=== PATIENT | female | born 1940 ===

== ENCOUNTER → 2018-10-30 | Outpatient (CLI) | payer OTHER ==
[~2018-10-30] VITALS: Ht 157.5 cm; Wt 69.4 kg
[~2018-10-30] MED LIST: ASPIR 8181 MG PO; FLEXERIL PO; GABAPENTIN 100100 MG PO; HYDROCODON-ACE1 EAC7 PO; LEXAPRO 10 MG T10 M1 PO; NEURONTIN 300300 M1 PO; OMEPRAZOLE20 M2 PO; SKELAXIN 800 M800 M1 PO; UNICOMPLEX M TA1 TA1 PO; VITAMIN C250 MG PO; VITAMIN D3400 UNIT PO
[2018-10-30 09:51] VITALS: BP 169/72
--- NOTE | 2018-10-30 10:08 | NUR ---
Pain Clinic Assessment: 1. History of Osteoarthritis: History of Rheumatoid Arthritis: 2. Height: 5 ft. 2 in. 157.5 cm. Weight: 153.0 lb. oz. 69.400 kg. Patient's BMI: 28.0 3. Vital Signs: BP: 169/72 Pulse: 86 Resp: 16 Temp: 02 Sat: 100 ECG Mon: 4. Pain Intensity: 10 5. Fall Risk: Dizziness: N Needs help standing or walking: N Fallen in the last 3 months: N Fall risk comments: 6. Patient on Blood Thinner: None 7. History of Hypertension: 8. Opioid Therapy greater than 6 weeks: N Opiate Contract Signed: 9. Risk Assessment Tool Provided: 10. Functional Assessment Tool: 11. Recreational Drug Use: Never Drug Type: Tobacco Use: Never Smoker Tobacco Type: Amount or Packs/day: How Many Years: Alcohol Use: No Frequency: Quant:
--- NOTE | 2018-11-05 11:18 | HPC ---
[facility] [place] [address] PAIN MANAGEMENT CONSULTATION Name: FABIOLA VIGIL [facility] #: [facility] [id number] Admission: 10/30/18 Attend Phys: Keith Glasgow MD Discharge: Date of : 36 Report #: [id number] THIS REPORT FOR: //name// CC: Dr. Phil Glasgow DATE OF SERVICE: 10/30/2018 CHIEF COMPLAINT: Right-sided occipital pain and neck stiffness. The patient is a very sharp and pleasant 77-year-old female who is at my clinic today at the request of Dr. Juanito Wilcox. She has had a 6-month history of cervicalgia with radiation up into the right lesser and greater occipital nerve distribution. The pain came on fairly abruptly. She was told early on by a chiropractor that she should see an ENT to make sure there was not some inner ear issue. She saw ENT in [place] or [facility] who told her that there was neuropathy and there was nothing to do other than to try some medication. She saw Dr. Naidu who did provide her with a local injection, which did not provide lasting relief and gave her gabapentin for neuropathy 300 mg at bedtime and ultimately 100 mg 3 times daily. Neither those seemed to provide enough relief to give her any benefit. She had no significant side effects on the gabapentin. Her daughter who works for [employer] suggested Tylenol and then ibuprofen, neither providing relief and ibuprofen causing GI upset and nausea and vomiting. Ultimately, she had a CT scan and saw Dr. Juanito Wilcox. Unfortunately, the CT scan did not come with her to clinic today, but the verbal report from patient and daughter is that there are degenerative changes and osteoarthritis as would be expected for a 77 year old. I am ordering the CT scan, but anticipate to see cervical spondylitic changes. MEDICATIONS: Vitamin C, vitamin D3, omeprazole, vitamins, gabapentin, Lexapro 10 mg daily and 81 mg aspirin. ALLERGIES: PENICILLIN, SULFA, CODEINE and CRESTOR. PAST MEDICAL HISTORY: Significant for an ovarian surgery decades ago, but otherwise she says she has had no other surgery and has been in excellent health. She does have a mild history of gastroesophageal reflux disease. REVIEW OF SYSTEMS: Positive for mild depression intermittently which has been treated with Lexapro. Mild anxiety disorder and now her current headaches. She has nocturia and incontinence and dribbling. She suffered at times from gastroesophageal reflux disease. [facility] [address] [place] [address] PAIN MANAGEMENT CONSULTATION Name: FABIOLA VIGIL [facility] [id number] Admission: 10/30/18 Attend Phys: Keith Glasgow MD Discharge: Date of : 36 Report #: [id number] SOCIAL HISTORY: Her son was killed 16 years ago in a murder which she continues to remember on his anniversary which was yesterday. She also attends a support group twice a month she says to help others who have gone through similar tragedy. Her 6 years ago. She remains very active. She drives her car. She volunteers at the hospital. She volunteers at [employer]. She can completely take care of herself. Her daughter is supportive and present with her today. PHYSICAL EXAMINATION: A very short pleasant 77 year old. Her blood pressure is 169/72, heart rate 86, respirations 16. She is 5 feet 2 inches, 153 pounds, BMI of 28. She reports her pain intensity is 10/10 today. This is her usual daily severe pain. She is not a fall risk when she stands and walks. She has a history of hypertension on medication. She is on no opioid medication. She does not use tobacco and does not drink regularly, although she had a glass of wine and found it to be analgesic recently. She has no history of rheumatoid osteoarthritis, but reports an osteoarthritic history in her neck. Her chest is clear. Her cardiac rhythm is regular. She moves easily from sitting to standing position and ambulates without difficulty. Examination of the cervical spine reveals decreased range of motion in all planes, flexion, extension, wevp-me-plxw rotation and lateral tilt. Pain is all in the right side, although she has tightness. She can only perform these range of motions to about 30% of normal, perhaps a little bit less. She has tightness in the cervicalis splenius capitis. She has tenderness below the right occiput. Strength and sensation is normal in the upper extremities. Deep tendon reflexes are diminished bilaterally. IMPRESSION: Cervicalgia with radiation to the C2-C3 distribution into the back of the head. She has failed so far medication management and local injection with greater occipital nerve block. RECOMMENDATION: 1. I want to review the CT scan. 2. I believe that she would benefit from a C2-C3 nerve root block performed at C2-C3 facet from the lateral approach. This has been helpful for many patients with similar presentation. 3. Begin hydrocodone 5 mg one-half to one tablet q.6 hours p.r.n. and she was given 30 tablets with discussion on safeguarding medications and review of the opioid crisis. We will not start her on chronic medication, so this is not a patient I would initiate contract with unless we determine that is a longstanding treatment option. We will seek preauthorization from the insurance company for the C2-C3 nerve [facility] [address] [place] [address] PAIN MANAGEMENT CONSULTATION Name: FABIOLA VIGIL Room #: REG NESSA Ramirez#: [id number] Admission: 10/30/18 Attend Phys: Keith Glasgow MD Discharge: Date of : 36 Report #: [id number] blocks under fluoroscopic guidance and we will see her back in the pain clinic in 1 week. <ELECTRONICALLY SIGNED> By: Keith Glasgow MD 11/05/18 1118 [id number] Keith Glasgow MD /nt
== END ==
LOC: PAIN 07:36
DX: R51 Headache (principal); M54.2 Cervicalgia; H92.01 Otalgia, right ear

== ENCOUNTER → 2018-11-13 | Outpatient (CLI) | payer OTHER ==
[~2018-11-13] VITALS: Ht 157.5 cm; Wt 69.3 kg
--- NOTE | ~2018-11-13 | HPC ---
[facility] [place] [address] PAIN MANAGEMENT CONSULTATION Name: FABIOLA VIGIL Room #: [facility] [id number] Admission: 11/13/18 Attend Phys: Keith Glasgow MD Discharge: Date of : 36 Report #: [id number] THIS REPORT FOR: //name// CC: Juanito Glasgow DATE OF SERVICE: 11/13/2018 Followup visit for chief complaint of right occipital pain and neck stiffness. The patient was seen just 2 weeks ago with evaluation leading to diagnosis of C3 neuralgia, evidence of C2-C3 and C3-C4 facet arthropathy. She is here today for C2-C3 nerve block under fluoroscopic guidance. The procedure was explained in detail, including risks and benefits. I reviewed my report of just [address] days [address] and x-ray reports. PHYSICAL EXAMINATION: VITAL SIGNS: Today, she is 5 feet 2 inches, 158, BMI 27.9. Blood pressure 170/82, heart rate 72 and respirations 20. Pain intensity is 10. MUSCULOSKELETAL: Localized discomfort is located laterally on the right, overlying the C2-C3 facet. This is confirmed with exam under x-ray in the fluoroscopic suite. She has significant discomfort with rotational movements of the head and lateral tilt. Flexion and extension is performed with only about 25% reduction from normal. All reflexes are slightly diminished symmetrically. Strength and sensation in the upper extremities are normal. IMPRESSION: Cervicalgia with C2-C3 radicular radiation distribution into the head, with C2-C3 and C3-C4 facet arthropathy. PROCEDURE: C2-C3 nerve root block under fluoroscopic guidance. DESCRIPTION OF PROCEDURE: After informed consent, she was taken to the fluoroscopic suite. She was placed prone. The skin was prepped with ChloraPrep. A lateral approach was taken. Skin was anesthetized with 1% lidocaine and a 27-gauge needle. This was then followed by advancement of a 25-gauge needle into the C2-C3 facet capsule. I confirmed placement with AP and lateral views and injected 0.25 mL of Omnipaque, demonstrating good extravascular deposition along the lateral mass and extending anteriorly to involve the C2-C3 nerve roots. I then injected a total of 3 mL of 0.5% lidocaine mixed with 4 mg of Decadron. She tolerated the injection well and was observed in the recovery room for approximately 45 minutes before discharge. Her pain score had diminished to a 0. [address] [address] PAIN MANAGEMENT CONSULTATION Name: FABIOLA VIGIL Room #: REG [facility]#: [id number] Admission: 11/13/18 Attend Phys: Keith Glasgow MD Discharge: Date of : 36 Report #: [id number] Followup visit planned in 1 month. No medications were ordered. By: [id number] Keith Glasgow MD /nt
[2018-11-13 14:36] VITALS: BP 170/82
--- NOTE | 2018-11-13 14:42 | NUR ---
Pain Clinic Assessment: 1. History of Osteoarthritis: History of Rheumatoid Arthritis: 2. Height: 5 ft. 2 in. 157.5 cm. Weight: 152.8 lb. oz. 69.310 kg. Patient's BMI: 27.9 3. Vital Signs: BP: 170/82 Pulse: 72 Resp: 20 Temp: 02 Sat: 100 ECG Mon: 4. Pain Intensity: 10 5. Fall Risk: Dizziness: N Needs help standing or walking: N Fallen in the last 3 months: N Fall risk comments: 6. Patient on Blood Thinner: None 7. History of Hypertension: N 8. Opioid Therapy greater than 6 weeks: N Opiate Contract Signed: 9. Risk Assessment Tool Provided: 10. Functional Assessment Tool: 11. Recreational Drug Use: Never Drug Type: Tobacco Use: Never Smoker Tobacco Type: Amount or Packs/day: How Many Years: Alcohol Use: No Frequency: Quant:
== END | disposition home or self-care (01) ==
LOC: PAIN 09:41
DX: M47.812 Spondylosis without myelopathy or radiculopathy, cervical region (principal); M50.90 Cervical disc disorder, unspecified, unspecified cervical region; M50.80 Other cervical disc disorders, unspecified cervical region; M12.88 Other specific arthropathies, not elsewhere classified, other specified site; Z88.0 Allergy status to penicillin; Z88.2 Allergy status to sulfonamides; Z88.8 Allergy status to other drugs, medicaments and biological substances; Z79.899 Other long term (current) drug therapy; Z79.82 Long term (current) use of aspirin

== ENCOUNTER → 2018-12-29 | Outpatient (CLI) | payer OTHER ==
[~2018-12-29] VITALS: Ht 157.5 cm; Wt 70.6 kg
[~2018-12-29] MED LIST changes: +TIZANIDINE HCL2 M1 PO
[2018-12-29 14:07] VITALS: BP 152/61
--- NOTE | 2018-12-29 14:22 | NUR ---
Pain Clinic Assessment: 1. History of Osteoarthritis: History of Rheumatoid Arthritis: 2. Height: 5 ft. 2 in. 157.5 cm. Weight: 155.6 lb. oz. 70.580 kg. Patient's BMI: 28.5 3. Vital Signs: BP: 152/61 Pulse: 71 Resp: 18 Temp: 02 Sat: 100 ECG Mon: 4. Pain Intensity: 10 5. Fall Risk: Dizziness: Y Needs help standing or walking: N Fallen in the last 3 months: N Fall risk comments: 6. Patient on Blood Thinner: None 7. History of Hypertension: N 8. Opioid Therapy greater than 6 weeks: N Opiate Contract Signed: 9. Risk Assessment Tool Provided: LOW 10. Functional Assessment Tool: 11. Recreational Drug Use: Never Drug Type: Tobacco Use: Never Smoker Tobacco Type: Amount or Packs/day: How Many Years: Alcohol Use: No Frequency: Quant:
--- NOTE | 2019-01-05 07:40 | HPC ---
[facility] [address] [place] [address] PAIN MANAGEMENT CONSULTATION Name: FABIOLA VIGIL Room #: REG [facility]ristela[facility]#: [id number] Admission: 12/29/18 ������������������ Attend Phys: Keith Glasgow MD Discharge: ������������������ Date of : 36 Report #: [id number] THIS REPORT FOR: //name// CC: Juanito Glasgow DATE OF SERVICE: 12/29/2018 CHIEF COMPLAINT: Followup visit for significant cervical spondylosis with neck pain. The patient returns to pain clinic today and has had a partial response to the injections provided. The neuropathic pain and occipital neuralgia is gone. This was a result of the facet injections performed on 11/13/2018. Unfortunately, she continues to complain of cervicalgia and neck pain. This is worse with movements, particularly rotational movements suggesting higher in the neck origin. She is here today with her daughter to talk about medication management. I spent 15 minutes with them reviewing nonsteroidal anti-inflammatory drugs, muscle relaxants and anti-seizure medications including gabapentin, opioids and others including antidepressants. She would like to try muscle relaxant suggested by her pharmacist, tizanidine. She has used Flexeril in the past. PQRS REVIEW: Positive for spondylitic arthritis of the cervical spine and additional arthritic joints throughout the lower extremities. Her BMI is 28.5. She scores her pain intensity as a 10/10. She has not fallen, nor does she appear to be a fall risk in the last 3 months. She is on no blood thinners and no history of hypertension. She signed an opioid agreement today in our clinic as we decided to give her a small trial of low dose hydrocodone in addition to a trial of tizanidine. See below on our discussion on how to use them. She denies use of tobacco or alcohol. PHYSICAL EXAMINATION: Pleasant female. Blood pressure 152/61, heart rate 71, respirations 18. BMI 28.5. Cervical spine: Rotational movements are significantly limited due to pain. Pain is also noted with flexion and extension. Slight obxe-kd-xweo tilt. She has tenderness below the occiput, but no radiation up into the occiput as before. IMPRESSION: 1. Cervicalgia related to significant spondylosis. Facet arthropathy C2-C3, C3-C4. 2. Management of high risk medication. Initiated trials separately of tizanidine and [place] [address] PAIN MANAGEMENT CONSULTATION Name: YARITZAFABIOLA M Room #: REG [facility] Ramirez#: [id number] Admission: 12/29/18 ������������������ Attend Phys: Keith Glasgow MD Discharge: ������������������ Date of : 36 Report #: [id number] discussed the opioid crisis. She will safeguard her medications and I have initiated an opioid agreement today. Discussed use of these medications in detail with the patient and her daughter, plan to follow up in 1 month. ��������������������������������������������� <ELECTRONICALLY SIGNED> ���������������������������������������� By: Keith Glasgow MD ��������������������������������������������� 01/05/19 0740 [id number] Keith Glasgow MD /tiffanie
== END ==
LOC: PAIN 12-11 12:11
DX: M47.812 Spondylosis without myelopathy or radiculopathy, cervical region (principal); M12.88 Other specific arthropathies, not elsewhere classified, other specified site; Z79.899 Other long term (current) drug therapy